=== PATIENT | female | born 1980 | race Caucasian/White ===

== ENCOUNTER 2024-10-25 09:38 | Emergency (ER) | payer BC | END 2024-10-25 10:55 | disposition home or self-care (01) | LOC: LL.ED 09:38 | DX: J02.8 Acute pharyngitis due to other specified organisms (principal); R55 Syncope and collapse; Z90.49 Acquired absence of other specified parts of digestive tract; Z87.891 Personal history of nicotine dependence | CPT/HCPCS: 87651-QW; 93005; 93010; 99284 ==